=== PATIENT | male | born 1965 | race Caucasian/White ===

== ENCOUNTER → 2018-01-16 | Day surgery (SDC) | payer OTHER ==
[~2018-01-16] VITALS: Ht 180.3 cm; Wt 103.2 kg
[~2018-01-16] MED LIST: LIPITOR20 MG PO; MOBIC 7.5MG7.5 MG PO; NEURONTIN300 MG/CAP PO; NEXIUM 40MG40 MG PO; PROVIGIL200 MG PO; TOPROL XL 50MG50 MG PO; ZANAFLEX2 MG PO
[2018-01-16 10:21] VITALS: BP 121/90; PULSE 73; TEMP 98
[2018-01-16 11:45] VITALS: BP 119/79; PULSE 68; TEMP 98.1
[2018-01-16 12:00] VITALS: BP 122/90; PULSE 65
== END ==
LOC: SDCO 09:33
DX: K62.1 Rectal polyp (principal); K20.9 Esophagitis, unspecified; K44.9 Diaphragmatic hernia without obstruction or gangrene; K21.9 Gastro-esophageal reflux disease without esophagitis; K22.70 Barrett's esophagus without dysplasia; K59.00 Constipation, unspecified; K62.89 Other specified diseases of anus and rectum; K60.1 Chronic anal fissure
CPT/HCPCS: J2250; J2405; J3010; J7030

== ENCOUNTER 2018-06-26 06:10 | Day surgery (SDC) | payer OTHER ==
[~2018-06-26] VITALS: Ht 180.3 cm; Wt 96.3 kg
[2018-06-26 06:38] VITALS: BP 119/85; PULSE 66; TEMP 97.5
[2018-06-26 09:34] VITALS: BP 108/57; PULSE 64
--- NOTE | 2018-06-26 09:34 | NUR ---
Patient returns to room 1 per cart from surgery and is awake and alert. Mesh panties in place and 4x4 dressing dry. IV fluids infusing and site free of redness. Spouse in room. Siderails up x2 and call light in reach. Allowed to rest. Sipping on diet Coke.
[2018-06-26 09:49] VITALS: BP 118/64; PULSE 77
--- NOTE | 2018-06-26 09:49 | NUR ---
Room air sats 100%. Continues to deny pain or nausea. IV fluids infusing.
[2018-06-26] MEDS ORDERED: MOTRIN 600600 MG/TAB PO (09:50)
[2018-06-26] MEDS ORDERED: COLACE 100100 MG/CAP PO (09:51)
[2018-06-26] MEDS ORDERED: NORCO 325 MG-51 TAB PO (09:51)
[2018-06-26] MEDS ORDERED: GOOD NEIGH3.4 GM/Dos PO (09:52)
[2018-06-26 10:04] VITALS: BP 119/70; PULSE 60
--- NOTE | 2018-06-26 10:04 | NUR ---
Assisted up to the bathroom. Voids and returns to room and is resting on cart. Denies pain or nausea.
[2018-06-26 10:19] VITALS: BP 123/69; PULSE 72
--- NOTE | 2018-06-26 10:19 | NUR ---
Instructed on sitz bath and states that he has used those before. IV discontinued and patient dresses self. 4x4 folded gauze dressing dry.
--- NOTE | 2018-06-26 10:35 | NUR ---
Given dismissal instructions and voices understanding of these. Provided scripts for Keller and Motrin. Instructed to take OTC colace and fiber to prevent constipation.
--- NOTE | 2018-06-26 10:39 | NUR ---
Patient dismissed to home per private vehicle driven by spouse with dismissal instructions in hand. Taken to the front door per wheelchair and assisted into vehilce by RN.
== END 2018-06-26 10:39 | disposition home or self-care (01) ==
LOC: SDCO 06:10
DX: K60.1 Chronic anal fissure (principal)
CPT/HCPCS: J0690; J1100; J1885; J2250; J2405; J2704; J3010; J7030

== ENCOUNTER 2019-08-19 06:46 | Day surgery (SDC) | payer OTHER ==
--- NOTE | 2019-08-18 13:45 | NUR ---
Called for Pre-Op Screening. Procedure education reviewed and questions answered
[2019-08-19] VITALS (325 sets, daily range): BP systolic 116–155; BP diastolic 77–97; PULSE 58–79; TEMP 98–98.9; O2SAT 85–100
[~2019-08-19] VITALS: Ht 182.9 cm; Wt 105.7 kg
[~2019-08-19 06:46] MED LIST changes: +COLACE 100100 MG/CAP PO; +GOOD NEIGH3.4 GM/Dos PO; +HCTZ12.5TAB PO; +MOTRIN 600600 MG/TAB PO; +NORCO 325 MG-51 TAB PO
[2019-08-19 07:18] LABS: RED BLOOD COUNT 4.81 M/mm3 (4.20-5.60)
[2019-08-19 07:19] LABS: BASO # 0.1 (0.0-0.2); BASO % 0.9 % (0.0-2.0); EOS # 0.2 (0.0-0.7); EOS % 2.3 % (0-4.0); GRAN # 3.8 (1.4-6.5); GRAN % 57.1 % (42.2-75.2); LYMPH # 1.8 (1.2-3.4); LYMPH % 27.2 % (20.0-51.0); MEAN CELL VOLUME 94 fl (80.0-100.0); MEAN CORPUSCULAR HEMOGLOBIN 31 pg (27.0-31.0); MEAN CORPUSCULAR HGB CONC 33 g/dl (33.0-37.0); MEAN PLATELET VOLUME 9.6 fl (7.4-10.4); MONO # 0.8 (0.1-0.6); PLATELET COUNT 257 K/mm3 (130-400); REDCELL DISTRIBUTION WIDTH-CV 13.2 % (11.5-14.5)
[2019-08-19 07:29] LABS: ALBUMIN 4.4 gm/dL (3.5-5.0); BILIRUBIN,TOTAL 0.3 mg/dL (0.0-1.0); CALCIUM 9.5 mg/dL (8.4-10.2); POTASSIUM 4.5 mmol/L (3.4-5.0); TOTAL PROTEIN 7.3 gm/dL (6.4-8.2)
[2019-08-19 07:30] LABS: INR 0.9 (0.8-3.0); PROTHROMBIN TIME 10.1 SECONDS (9.7-12.8)
[2019-08-19] MEDS ORDERED: NORVASC 5MG5 MG/TAB PO (07:39)
--- NOTE | 2019-08-19 08:36 | NUR ---
SEE MERGE FOR MEDICATION ADMINISTRATION TIMES AND INTRA AND POST SEDATION ASSESSMENTS.
--- NOTE | 2019-08-19 09:44 | NUR ---
Telephone report recieved from NAMRATA Paulino - pt to recover in EU
--- NOTE | 2019-08-19 12:53 | NUR ---
Pt ambulated from EU 12 to ICU 5 without difficulty or chest pain Pt placed back on automated/continuous vitals - up to chair with lunch - right radial access restrictions reinforced - report provided to NAMRATA Veronica - call light in reach
--- NOTE | 2019-08-19 13:21 | NUR ---
SYDNEE met with the patient to complete initial intake. The patient lives in [place] with his , Yves and their son. The patient denies DME use and is independent with ADLs. The patient's PCP is Dr. Cardona and patient receives medications from [facility] in [place]. The patient does not have advanced directives in the EMR but states they are completed and designate his . The patient does not have any questions or concerns about discharge. His will provide transportation home. There are no additional needs at this time.
--- NOTE | 2019-08-19 19:24 | NUR ---
REPORT GIVEN TO NAMRATA BARRERA
[2019-08-20] VITALS (336 sets, daily range): BP systolic 123–140; BP diastolic 85–87; PULSE 58–63; TEMP 97.6–98.2; O2SAT 79–100
[2019-08-20 04:42] LABS: BASO # 0.1 (0.0-0.2); BASO % 0.5 % (0.0-2.0); EOS # 0.2 (0.0-0.7); EOS % 2.2 % (0-4.0); GRAN # 6.7 (1.4-6.5); GRAN % 70.2 % (42.2-75.2); HEMATOCRIT 44.6 % (42.0-52.0); LYMPH # 1.8 (1.2-3.4); LYMPH % 18.6 % (20.0-51.0); MEAN CELL VOLUME 93 fl (80.0-100.0); MEAN CORPUSCULAR HEMOGLOBIN 31 pg (27.0-31.0); MEAN CORPUSCULAR HGB CONC 34 g/dl (33.0-37.0); MEAN PLATELET VOLUME 9.6 fl (7.4-10.4); MONO # 0.8 (0.1-0.6); MONO % 8.2 % (1.7-9.3); PLATELET COUNT 252 K/mm3 (130-400); RED BLOOD COUNT 4.82 M/mm3 (4.20-5.60); REDCELL DISTRIBUTION WIDTH-CV 13.2 % (11.5-14.5)
[2019-08-20 05:07] LABS: CALCIUM 9.4 mg/dL (8.4-10.2); CREATININE, serum 0.9 (0.66-1.25); POTASSIUM 4.2 mmol/L (3.4-5.0)
[2019-08-20] MEDS ORDERED: BRILINTA90 MG PO (10:22)
[2019-08-20] MEDS ORDERED: LIPITOR 80MG80 MG PO (10:22)
[2019-08-20] MEDS ORDERED: ASPIRIN E.C. 8181 MG PO (10:25)
--- NOTE | 2019-08-20 11:32 | NUR ---
PT discharged via private vehicle with spouse driving. PT stable with a steady gait. PT denies pain, shortness of breath, or dizziness. PT understands education and will call with any questions that may arise.
== END 2019-08-20 11:25 | disposition home or self-care (01) ==
LOC: COL.CAR 06:46 → ICU 12:31 → COL.CAR 08-20 11:25
PROVIDERS: Internal Medicine Cardiovascular Disease
DX: I25.10 Atherosclerotic heart disease of native coronary artery without angina pectoris (principal); I10 Essential (primary) hypertension; E78.5 Hyperlipidemia, unspecified; E66.9 Obesity, unspecified; Z87.891 Personal history of nicotine dependence
CPT/HCPCS: OP; C1769; C1874; C1887; C9600; J0583; J1644; J2250; J3010; Q9967